=== PATIENT | female | born 1990 | race Caucasian/White ===

== ENCOUNTER → 2016-09-20 | Outpatient (CLI) | payer BC ==
[~2016-09-20] MED LIST: AC500T PO; ALBU8.5H2 IH; ALPR.25T PO; AMOX250S5 PO; ASPI-586 PO; BIRTH CONTROL PO; COUMADIN; DEXAINTSOL PO; EXCEDRIN; FEXO180T PO; FLUT16SP22 NSEACH; HYDR-1231 PO; HYDR-3583 PO; HYDR-3812 PO; HYDR473S50 PO; LEVO125T PO; LEVOTHYROXINE PO; LORA10TA7 PO; MONT10TA21 PO; OXYC1TAB5 PO; PNT40TEC PO; PRM25T PO; PROM25SU43 RC; PROM25TA14 PO; TETRACAINESUCKERS MT; WARF2TAB PO
--- NOTE | 2016-09-20 18:42 | Diagnostic Imaging Report ---
Ultrasound of the neck. INDICATION: Right lateral neck pain. History of thyroid cancer and lymph node removal. FINDINGS: There is a 1.1 x 0.5 x 0.8 cm lymph node in the right supraclavicular region with fatty hilum seen suggestive of benign etiology. No other mass or fluid collection seen. IMPRESSION: Nonspecific mildly prominent right supraclavicular lymph node. Dictated by: Dictated on workstation # [id number]
== END ==
LOC: RAD 14:50
PROVIDERS: ATTEND Otolaryngology Otolaryngology/Facial Plastic Surgery
DX: M54.2 Cervicalgia (principal)
CPT/HCPCS: 76536

== ENCOUNTER → 2016-10-08 | Outpatient (CLI) | payer BC ==
[~2016-10-08] MED LIST changes: +CATHETER FLUSH 10 ML SYR IV PRN; +IOHEXOL 350 MG/ML 100 ML (OMNIPAQUE 350) VIAL IV ONE; +NS 100 ML (IVPB) BAG IV ONE
[2016-10-08 11:18] LABS: BASOPHILS % (AUTO) 0 % (0-10); EOSINOPHILS % (AUTO) 1 % (0-10); LYMPHOCYTES # (AUTO) 1.7 X 10^3 (1.0-4.0); LYMPHOCYTES % (AUTO) 20 % (12-44); MEAN CORPUSCULAR HEMOGLOBIN 26 PG (25-34); MEAN CORPUSCULAR HGB CONC 33 G/DL (32-36); MEAN CORPUSCULAR VOLUME 79 FL (80-99); MEAN PLATELET VOLUME 10.3 FL (7.4-10.4); MONOCYTES # (AUTO) 0.5 X 10^3 (0.0-1.0); MONOCYTES % (AUTO) 6 % (0-12); NEUTROPHILS # (AUTO) 6.5 X 10^3 (1.8-7.8); NEUTROPHILS % (AUTO) 74 % (42-75); PLATELET COUNT 366 10^3/uL (130-400); RED CELL DISTRIBUTION WIDTH 13.8 % (10.0-14.5); WHITE BLOOD COUNT 8.9 10^3/uL (4.3-11.0)
[2016-10-08 11:35] LABS: ANION GAP 8 MMOL/L (5-14); BLOOD UREA NITROGEN 12 MG/DL (7-18); BUN/CREATININE RATIO 13; CALCIUM 9.8 MG/DL (8.5-10.1); CARBON DIOXIDE 26 MMOL/L (21-32); CHLORIDE 105 MMOL/L (98-107); GFR ESTIMATED > 60; GLUCOSE 100 MG/DL (70-105); POTASSIUM 3.9 MMOL/L (3.6-5.0); SODIUM 139 MMOL/L (135-145); hs C REACTIVE PROTEIN 0.04 MG/DL (0.00-0.50)
--- NOTE | 2016-10-08 12:16 | Diagnostic Imaging Report ---
PROCEDURE: CT head with and without contrast. TECHNIQUE: Multiple contiguous axial images were obtained through the brain before and after the administration of intravenous contrast. INDICATION: Headaches. Nausea and vomiting. 80 mL of Omnipaque 350 is administered intravenously. FINDINGS: The unenhanced phase demonstrates no intracranial hemorrhage. The brain parenchyma demonstrates normal pendleton-white matter differentiation without no brain edema, mass effect or enhancing lesion seen. No hydrocephalus. There is a patent stent seen along the left transverse and sigmoid sinus which is patent. The venous sinus enhancement proximal and distal to the stent is normal. No abnormal dilatation of the vein seen. The orbits, the calvarium, and the visualized portions of the paranasal sinuses appear grossly unremarkable. IMPRESSION: Patent left transverse and sigmoid venous sinus stents. No acute process. Dictated by: Dictated on workstation # [id number]
== END ==
LOC: RAD 10:58
PROVIDERS: ATTEND Internal Medicine
DX: R11.10 Vomiting, unspecified (principal)
CPT/HCPCS: 36415; 70470; 80048; 84703; 85025; 85379; 86141

== ENCOUNTER → 2016-11-26 | Outpatient (CLI) | payer BC ==
[~2016-11-26] MED LIST changes: -CATHETER FLUSH 10 ML SYR IV PRN; -IOHEXOL 350 MG/ML 100 ML (OMNIPAQUE 350) VIAL IV ONE; -NS 100 ML (IVPB) BAG IV ONE
--- NOTE | 2016-11-26 14:29 | Diagnostic Imaging Report ---
EXAMINATION: Right lower extremity duplex venous ultrasound. TECHNIQUE: DVT protocol. Multiple sonographic images with color Doppler and waveform interrogation were performed of the right lower extremity veins with compression and augmentation maneuvers. INDICATION: Right leg pain and swelling. FINDINGS: The right lower extremity veins from the groin to below the knee veins were examined with normal color-flow, compressibility and normal waveform demonstrated. The great saphenous vein is patent. There is a hypoechoic lesion measuring 5.4 x 0.5 x 3.4 cm may represent a hematoma located in the pelvis anterior to the right external iliac vessels. IMPRESSION: No evidence of DVT in the right lower extremity. Suggestion of a small right pelvic hematoma. Dictated by: Dictated on workstation # [id number]
== END ==
LOC: RAD 13:45
PROVIDERS: ATTEND Internal Medicine
DX: M79.651 Pain in right thigh (principal); R22.41 Localized swelling, mass and lump, right lower limb

== ENCOUNTER → 2017-02-13 | Outpatient (CLI) | payer BC ==
--- NOTE | 2017-02-15 19:20 | Diagnostic Imaging Report ---
INDICATION: History of papillary carcinoma of the thyroid. TECHNIQUE: Patient received 4.37 mCi I-131 oral and 48 hour post ingestion whole body planar imaging performed. FINDINGS: There is activity distributed throughout the length of the large bowel as well as some midline pelvic accumulation, probably within the rectum or urinary bladder. There is no abnormal uptake in the neck or chest. No abnormal hepatic uptake. IMPRESSION: Some excreted radiopharmacy with no suspicious scintigraphic findings. Dictated by: Dictated on workstation # [id number]
== END ==
LOC: CARD 13:44
PROVIDERS: ATTEND Radiology Radiation Oncology
DX: C73 Malignant neoplasm of thyroid gland (principal)
CPT/HCPCS: 78018

== ENCOUNTER 2017-02-15 12:48 | Outpatient (RCR) | payer BC ==
[~2017-02-15 12:48] MED LIST changes: +THYROTROPIN 1.1 MG VIAL IM ONE
== END 2017-03-02 | disposition home or self-care (01) ==
LOC: ONC 12:48
PROVIDERS: ATTEND Radiology Radiation Oncology
DX: C73 Malignant neoplasm of thyroid gland (principal)
CPT/HCPCS: 84703; 86800; 96372

== ENCOUNTER → 2017-03-04 | Outpatient (CLI) | payer BC ==
[~2017-03-04] MED LIST changes: -THYROTROPIN 1.1 MG VIAL IM ONE
--- NOTE | 2017-03-04 16:56 | Diagnostic Imaging Report ---
Three views of the right shoulder. INDICATION: Right shoulder pain. FINDINGS: No fracture, dislocation or radiopaque foreign body is seen. There is satisfactory alignment of the acromioclavicular and glenohumeral joints seen. IMPRESSION: Unremarkable exam. Dictated by: Dictated on workstation # [id number]
== END ==
LOC: RAD 14:34
PROVIDERS: ATTEND Internal Medicine
DX: M25.511 Pain in right shoulder (principal)
CPT/HCPCS: 73030

== ENCOUNTER 2021-09-18 19:21 | Outpatient (CLI) | payer OTHER ==
[~2021-09-18] VITALS: Ht 162.6 cm; Wt 68.7 kg
[~2021-09-18 19:21] MED LIST changes: +ACHD5005 PO; -HYDR-3812 PO
[2021-09-18 19:54] LABS: BILIRUBIN,URINE NEGATIVE (NEGATIVE); CLARITY,URINE CLEAR; COLOR,URINE YELLOW; GLUCOSE, URINE (UA) NEGATIVE (NEGATIVE); KETONES,URINE 3+ (NEGATIVE); LEUKOCYTE ESTERASE ,URINE NEGATIVE (NEGATIVE); NITRITE,URINE NEGATIVE (NEGATIVE); PH,URINE 5.5 (5-9); PROTEIN,URINE 1+ (NEGATIVE)
[2021-09-18 20:02] VITALS: BP 114/59
[2021-09-18 20:03] LABS: BACTERIA,URINE FEW /HPF
[2021-09-18 20:10] VITALS: BP 114/59
[2021-09-18] MEDS ORDERED: D5 LR IV SOLUTION 1,000 ML IV ONE ×2 (20:36→21:00)
[2021-09-18] MEDS ORDERED: PREN-8 PO (21:21)
[2021-09-18] MEDS ORDERED: GABA-486 PO (21:21)
[2021-09-18] MEDS ORDERED: NF-VITD400 PO (21:21)
[2021-09-18] MEDS ORDERED: OMEG-160 PO (21:21)
[2021-09-18] MEDS ORDERED: DOXY25TA56 PO (21:21)
[2021-09-18] MEDS ORDERED: LORA10CA PO (21:22)
[2021-09-18 21:40] VITALS: BP 114/59
[2021-09-18 22:15] VITALS: BP 114/59
--- NOTE | 2021-09-19 08:16 | Physician Query-Final Dx ---
Clinic Account Progress/Dx Physician Query: Please give diagnosis Please include # weeks gestation Date of Service Sep 18, 2021 at 19:21 MARISOL,JunSep 19, 2021 08:16
== END 2021-09-18 22:15 ==
LOC: LDRP 19:21 → WSo 19:21
PROVIDERS: ATTEND Family Medicine
DX: Z34.90 Encounter for supervision of normal pregnancy, unspecified, unspecified trimester (principal); Z3A.00 Weeks of gestation of pregnancy not specified
CPT/HCPCS: 81000; 96360; G0463; 99213

== ENCOUNTER 2022-03-12 17:15 | Observation (INO) | payer OTHER ==
[~2022-03-12] VITALS: Ht 162.6 cm; Wt 66.5 kg
[~2022-03-12 17:15] MED LIST changes: +DOXY25TA56 PO; +GABA-486 PO; +LORA10CA PO; +NF-VITD400 PO; +OMEG-160 PO; +PREN-8 PO
[2022-03-12] MEDS ORDERED: LACTATED RINGERS 1,000 ML IV ONE (18:00)
[2022-03-12 18:01] LABS: BASOPHILS # (AUTO) 0.1 10^3/uL (0.0-0.1); BASOPHILS % (AUTO) 1 % (0-10); EOSINOPHILS # (AUTO) 0.5 10^3/uL (0.0-0.3); EOSINOPHILS % (AUTO) 6 % (0-10); HEMATOCRIT 40 % (35-52); HEMOGLOBIN 13.2 g/dL (11.5-16.0); LYMPHOCYTES # (AUTO) 3.6 10^3/uL (1.0-4.0); LYMPHOCYTES % (AUTO) 44 % (12-44); MEAN CORPUSCULAR HEMOGLOBIN 27 pg (25-34); MEAN CORPUSCULAR HGB CONC 33 g/dL (32-36); MEAN CORPUSCULAR VOLUME 83 fL (80-99); MEAN PLATELET VOLUME 10.6 fL (9.0-12.2); MONOCYTES # (AUTO) 0.6 10^3/uL (0.0-1.0); MONOCYTES % (AUTO) 8 % (0-12); NEUTROPHILS # (AUTO) 3.4 10^3/uL (1.8-7.8); NEUTROPHILS % (AUTO) 41 % (42-75); PLATELET COUNT 289 10^3/uL (130-400); WHITE BLOOD COUNT 8.3 10^3/uL (4.3-11.0)
[2022-03-12 18:06] LABS: ALBUMIN 4.7 GM/DL (3.2-4.5); CHLORIDE 104 MMOL/L (98-107); POTASSIUM 3.9 MMOL/L (3.6-5.0); SODIUM 138 MMOL/L (135-145)
[2022-03-12 18:07] LABS: CALCIUM 9.9 MG/DL (8.5-10.1)
[2022-03-12 18:08] LABS: GLUCOSE 106 MG/DL (70-105)
[2022-03-12 18:09] LABS: TOTAL PROTEIN 7.8 GM/DL (6.4-8.2)
[2022-03-12 18:10] LABS: BILIRUBIN,TOTAL 0.3 MG/DL (0.1-1.0); CARBON DIOXIDE 22 MMOL/L (21-32)
[2022-03-12 18:12] LABS: ALKALINE PHOSPHATASE 48 U/L (40-136); CREATININE SERUM 0.99 MG/DL (0.60-1.30); GFR ESTIMATED 79
[2022-03-12 18:13] LABS: BUN/CREATININE RATIO 14
[2022-03-12 18:15] LABS: ALANINE AMINOTRANSFERASE 15 U/L (0-55); MAGNESIUM 2.1 MG/DL (1.6-2.4)
[2022-03-12 18:16] LABS: CREATINE KINASE 73 U/L (29-168)
[2022-03-12 18:23] LABS: CREATINE KINASE MB 0.6 NG/ML (<6.6)
[2022-03-12 18:24] LABS: ERYTHROCYTE SEDIMENTATION RATE 9 MM/HR (0-20)
[2022-03-12 18:28] LABS: BILIRUBIN,URINE NEGATIVE (NEGATIVE); CLARITY,URINE CLEAR; COLOR,URINE YELLOW; GLUCOSE, URINE (UA) NEGATIVE (NEGATIVE); KETONES,URINE NEGATIVE (NEGATIVE); LEUKOCYTE ESTERASE ,URINE NEGATIVE (NEGATIVE); NITRITE,URINE NEGATIVE (NEGATIVE); PROTEIN,URINE TRACE (NEGATIVE)
--- NOTE | 2022-03-12 18:28 | Diagnostic Imaging Report ---
EXAMINATION: Chest, one view. HISTORY: Seizure. COMPARISON: None available. FINDINGS: Heart size and pulmonary vasculature are normal. The lungs are clear without consolidation, pleural effusion, or pneumothorax. The osseous structures are intact. Surgical clips are present overlying the right lung apex and right neck. IMPRESSION: 1. No acute radiographic abnormality in the chest. Dictated by: Dictated on workstation # [id number]
[2022-03-12 18:35] LABS: BACTERIA,URINE TRACE /HPF; WBC,URINE RARE /HPF
[2022-03-12 18:36] LABS: TSH (THYROID ANALYZER) 0.02 UIU/ML (0.35-4.94)
[2022-03-12 18:43] LABS: AMPHETAMINE SCREEN, URINE NEGATIVE (NEGATIVE); BARBITURATE SCREEN URINE NEGATIVE (NEGATIVE); BENZODIAZEPINES SCREEN URINE NEGATIVE (NEGATIVE); CANNABINOID SCREEN, URINE NEGATIVE (NEGATIVE); COCAINE SCREEN URINE NEGATIVE (NEGATIVE); METHADONE STAT NEGATIVE (NEGATIVE); OPIATE SCREEN URINE NEGATIVE (NEGATIVE); OXYCODONE STAT NEGATIVE (NEGATIVE); PROPOXYPHENE STAT NEGATIVE (NEGATIVE); TRICYCLIC ANTIDEPRESSANTS SCRE NEGATIVE (NEGATIVE)
--- NOTE | 2022-03-12 18:51 | Diagnostic Imaging Report ---
EXAMINATION: CT head without contrast. TECHNIQUE: Multiple contiguous axial images were obtained through the brain without the use of intravenous contrast. All CT scans use one or more of the following dose optimizing techniques: Automated exposure control, MA and/or KvP adjustment based on patient size and exam type or iterative reconstruction. HISTORY: Seizure. COMPARISON: 10/08/2016. FINDINGS: The ventricles and sulci are normal. No abnormal attenuation of brain parenchyma is present. No acute intracranial hemorrhage or abnormal extra-axial fluid collections are present. No hyperdense vessel. A left transverse sinus stent is present. The calvarium is intact. The mastoid air cells are clear. The visualized paranasal sinuses are clear. The orbits are normal. IMPRESSION: 1. No acute intracranial abnormality. Result were communicated to Dr. Chirinos by Dr. Gregg Jenkins at 6:45 p.m. on 03/12/2022. Dictated by: Dictated on workstation # [id number]
[2022-03-12] MEDS ORDERED: NS 100 ML (IVPB) BAG IV ONE (19:00)
[2022-03-12 19:08] LABS: FREE T4 (FREE THYROXINE) 1.43 NG/DL (0.70-1.48)
[2022-03-12] MEDS: NS 100 ML (IVPB) BAG IV ONE ×2 (19:18→19:56)
[2022-03-12] MEDS: IOHEXOL 350 MG/ML 100 ML (OMNIPAQUE 350) VIAL IV ONE ×4 (19:18→19:56)
--- NOTE | 2022-03-12 19:27 | Diagnostic Imaging Report ---
TECHNIQUE: CT cerebral perfusion study was performed using a dual slab technique. Post processing was performed using the RAPID software. 80 mL of Omnipaque 350 was administered. REASON FOR EXAM: Left MCA stenosis. Acute stroke. COMPARISON: CT head performed earlier the same date. FINDINGS: There is no significant motion artifact. The arterial inflow and venous outflow graphs are adequate. The volume of parenchyma demonstrating cerebral blood flow of less than 30% is equal to 0 mL. The volume of parenchyma showing a Tmax greater than 6 seconds is 0 mL. Parenchyma are demonstrated Tmax greater than 8 seconds equals 0 mL, and greater than 10 seconds 0 mL. No evidence of core infarct or penumbra-like pattern. IMPRESSION: 1. No CT perfusion evidence of core infarct or penumbra-like pattern. Dictated by: Dictated on workstation # [id number]
--- NOTE | 2022-03-12 19:34 | Diagnostic Imaging Report ---
PROCEDURE: CT angiography of the head and CT angiography of the neck with and without contrast. TECHNIQUE: Contiguous noncontrast images were obtained from the skull base through the vertex. After intravenous contrast administration, helical CT angiography of the neck was performed. Source data was reformatted into 3D MIP projections. Delayed post contrast acquisition was also obtained. Auto Exposure Controls were utilized during the CT exam to meet ALARA standards for radiation dose reduction. INDICATION: Seizure. TIA. COMPARISON: CT head performed earlier the same date. FINDINGS: CTA Neck: The visualized portions of the aortic arch demonstrate no evidence of aneurysm or dissection. There is conventional branching pattern of the great vessels of the aorta. The brachiocephalic artery is normal in course and caliber. The right and left common carotid origins are unremarkable. The origin of the left subclavian artery is patent. The common carotid arteries and internal carotid arteries demonstrate a normal course. No stenosis or dissection in the carotid systems. The external carotid arteries are patent and unremarkable. The right vertebral artery is dominant. The origin of the right vertebral artery is seen and is unremarkable. The origin of the left vertebral artery is seen and is unremarkable. There is no focal stenosis seen within the neck. There is no dissection. The vertebral arteries are well visualized to up to the level of the basilar artery. The osseous structures of the cervical spine are unremarkable. Included views through the lung apices demonstrate no focal consolidation. CTA brain: No stenosis or aneurysm in the intracranial portion of the bilateral ICA. No stenosis is seen in the bilateral anterior, middle, and posterior cerebral arteries. No evidence of aneurysm the [place] of [place]. In the posterior circulation, both of the vertebral arteries demonstrate normal opacification. Both the right and left PICA arteries are identified. The basilar artery is normal in course and caliber. The terminal branch vessels including the superior cerebellar arteries unremarkable. IMPRESSION: 1. No stenosis or aneurysm in the [place] of [place]. No large vessel occlusion. 2. No stenosis or dissection the bilateral carotid and vertebral arteries. Dictated by: Dictated on workstation # [id number]
[2022-03-12] MEDS ORDERED: KETOROLAC 30 MG/ML VIAL IVP STA (20:02)
--- NOTE | 2022-03-12 20:35 | ED Neurological Problem ---
General Chief Complaint: Neurological Problems Stated Complaint: SEIZURE Nursing Triage Note: PT AMB TO RM 9. PT STATED THAT SHE WAS DRIVING AND HAD A SEIZURE AND WENT OFF THE ROAD AND HIT A POLE. PT HAS HX OF SEIZURES. Source: patient History of Present Illness Date Seen by Provider: Mar 12, 2022 Allergies and Home Medications Allergies Coded Allergies: ondansetron (Verified Allergy, Mild, 01/16/15) Patient Home Medication List Aspirin (Aspir 81) 81 Mg Tablet.dr, 81 MG PO DAILY PRN, (Reported) Entered as Reported by: JACKY HOLM on 03/19/161956 Doxylamine Succinate (Unisom) 25 Mg Tablet, 25 MG PO HS, (Reported) Entered as Reported by: NELSON PATINO on 09/18/212120 Gabapentin (Gabapentin) 100 Mg Capsule, 100 MG PO HS, (Reported) Entered as Reported by: NELSON PATINO on 09/18/212120 Levothyroxine Sodium (Synthroid) 125 Mcg Tablet, 125 MCG PO DAILY, (Reported) Entered as Reported by: YAJAIRA STEPHENS on 12/06/14 1239 Loratadine (Claritin) 10 Mg Capsule, 10 MG PO DAILY, (Reported) Entered as Reported by: NELSON PATINO on 09/18/212121 [place]-3/Dha/Epa/Fish Oil (Fish Oil 1,000 mg Softgel) 1 Each Capsule, 1 EACH PO DAILY, (Reported) Entered as Reported by: NELSON PATINO on 09/18/212120 Vit W-Ca,Fe,FA(<1 mg) ( Formula) 1 Each Tablet, 1 EACH PO DAILY, (Reported) Entered as Reported by: NELSON PATINO on 09/18/212120 Vitamin D (Vitamin D3) 10 Mcg Tablet, 400 MCG PO DAILY, (Reported) Entered as Reported by: NELSON PATINO on 09/18/212120 Past Dhgofnz-Mifruy-Caxxes Hx Patient Social History Tobacco Use?: No Substance use?: No Alcohol Use?: No Pt feels they are or have been: Unable to obtain Immunizations Up To Date Tetanus Booster (TDap): Less than 5yrs PED Vaccines UTD: Yes Influenza Vaccine Up-to-Date: Yes; Up-to-Date Seasonal Allergies Seasonal Allergies: No Past Medical History Orthopedic, Thyroidectomy, Tonsillectomy Asthma Reproductive Disorders: Yes Female Reproductive Disorders: Endometriosis, Ovarian Cyst [employer] History: IUD Kidney Stones Hypothyroidsim Tonsilitis Thyroid Anxiety Eczema Family Medical History No Pertinent Family Hx Physical Exam Vital Signs Vital Signs - First Documented 03/12/22 17:24 Temp 36.6 Pulse 95 Resp 12 B/P (MAP) 116/63 (80) Pulse Ox 98 O2 Delivery Room Air Capillary Refill : Less Than 3 Seconds Height, Weight, BMI Height: 5'4" Weight: 150lbs. 0.0oz. [id number]; 22.00 BMI Method:Stated Progress/Results/Core Measures Results/Orders Lab Results Laboratory Tests Test 03/12/22 17:26 03/12/22 18:05 03/12/22 18:20 Range/Units White Blood Count 8.3 4.3-11.0 10^3/uL Red Blood Count 4.82 3.80-5.11 10^6/uL Hemoglobin 13.2 11.5-16.0 g/dL Hematocrit 40 35-52 % Mean Corpuscular Volume 83 80-99 fL Mean Corpuscular Hemoglobin 27 25-34 pg Mean Corpuscular Hemoglobin Concent 33 32-36 g/dL Red Cell Distribution Width 13.1 10.0-14.5 % Platelet Count 289 130-400 10^3/uL Mean Platelet Volume 10.6 9.0-12.2 fL Immature Granulocyte % (Auto) 0 % Neutrophils (%) (Auto) 41 L 42-75 % Lymphocytes (%) (Auto) 44 12-44 % Monocytes (%) (Auto) 8 0-12 % Eosinophils (%) (Auto) 6 0-10 % Basophils (%) (Auto) 1 0-10 % Neutrophils # (Auto) 3.4 1.8-7.8 10^3/uL Lymphocytes # (Auto) 3.6 1.0-4.0 10^3/uL Monocytes # (Auto) 0.6 0.0-1.0 10^3/uL Eosinophils # (Auto) 0.5 H 0.0-0.3 10^3/uL Basophils # (Auto) 0.1 0.0-0.1 10^3/uL Immature Granulocyte # (Auto) 0.0 0.0-0.1 10^3/uL Erythrocyte Sedimentation Rate 9 0-20 MM/HR Sodium Level 138 135-145 MMOL/L Potassium Level 3.9 3.6-5.0 MMOL/L Chloride Level 104 98-107 MMOL/L Carbon Dioxide Level 22 21-32 MMOL/L Anion Gap 12 5-14 MMOL/L Blood Urea Nitrogen 14 7-18 MG/DL Creatinine 0.99 0.60-1.30 MG/DL Estimat Glomerular Filtration Rate 79 BUN/Creatinine Ratio 14 Glucose Level 106 H 70-105 MG/DL Calcium Level 9.9 8.5-10.1 MG/DL Corrected Calcium 8.5-10.1 MG/DL Magnesium Level 2.1 1.6-2.4 MG/DL Total Bilirubin 0.3 0.1-1.0 MG/DL Aspartate Amino Transf (AST/SGOT) 17 5-34 U/L Alanine Aminotransferase (ALT/SGPT) 15 0-55 U/L Alkaline Phosphatase 48 40-136 U/L Total Creatine Kinase 73 29-168 U/L Creatine Kinase MB 0.6 <6.6 NG/ML Myoglobin 414.3 H 10.0-92.0 NG/ML C-Reactive Protein High Sensitivity 0.06 0.00-0.50 MG/DL Total Protein 7.8 6.4-8.2 GM/DL Albumin 4.7 H 3.2-4.5 GM/DL Free Thyroxine 1.43 0.70-1.48 NG/DL TSH Sunflower Testing 0.02 L 0.35-4.94 UIU/ML Serum Test, Qualitative NEGATIVE NEGATIVE Serum Alcohol < 10 <10 MG/DL Influenza Type A (RT-PCR) Not Detected Not Detecte Influenza Type B (RT-PCR) Not Detected Not Detecte SARS-CoV-2 RNA (RT-PCR) Not Detected Not Detecte Urine Color YELLOW Urine Clarity CLEAR Urine pH 5.0 5-9 Urine Specific [place] >=1.030 1.016-1.022 Urine Protein TRACE H NEGATIVE Urine Glucose (UA) NEGATIVE NEGATIVE Urine Ketones NEGATIVE NEGATIVE Urine Nitrite NEGATIVE NEGATIVE Urine Bilirubin NEGATIVE NEGATIVE Urine Urobilinogen 0.2 < = 1.0 MG/DL Urine Leukocyte Esterase NEGATIVE NEGATIVE Urine RBC (Auto) NEGATIVE NEGATIVE Urine RBC NONE /HPF Urine WBC RARE /HPF Urine Squamous Epithelial Cells 2-5 /HPF Urine Crystals NONE /LPF Urine Bacteria TRACE /HPF Urine Casts NONE /LPF Urine Mucus NEGATIVE /LPF Urine Culture Indicated NO Urine Opiates Screen NEGATIVE NEGATIVE Urine Oxycodone Screen NEGATIVE NEGATIVE Urine Methadone Screen NEGATIVE NEGATIVE Urine Propoxyphene Screen NEGATIVE NEGATIVE Urine Barbiturates Screen NEGATIVE NEGATIVE Ur Tricyclic Antidepressants Screen NEGATIVE NEGATIVE Urine Phencyclidine Screen NEGATIVE NEGATIVE Urine Amphetamines Screen NEGATIVE NEGATIVE Urine Methamphetamines Screen NEGATIVE NEGATIVE Urine Benzodiazepines Screen NEGATIVE NEGATIVE Urine Cocaine Screen NEGATIVE NEGATIVE Urine Cannabinoids Screen NEGATIVE NEGATIVE My Orders Orders - ZAYMIYA Lyman Fanny DO Ed Iv/Invasive Line Start (03/12/22 17:53) Ekg Tracing (03/12/2253) O2 (03/12/22:53) Monitor-Rhythm Ecg Trace Only (03/12/22:53) Ct Head Wo-R/O Stroke (03/12/22:53) Chest 1 View, Ap/Pa Only (03/12/2253) Alcohol (03/12/22) Cbc With Automated Diff (03/12/22:) Comprehensive Metabolic Panel (03/12/22:53) Creatine Kinase (03/12/22:) Creatine Kinase Mb (03/12/22:53) Hs C Reactive Protein (03/12/22:53) Drug Screen Stat (Urine) (03/12/22:53) Hcg,Qualitative Serum (03/12/22:) Magnesium (03/12/22:53) Thyroid Analyzer (03/12/22:53) Ua Culture If Indicated (03/12/22:53) Erythrocyte Sedimentation Rate (03/12/22:) Myoglobin Serum (03/12/22:53) Ed Iv/Invasive Line Start (03/12/22:53) Lactated Ringers (Lr 1000 Ml Iv Solution (03/12/22 18:00) Covid 19 Inhouse Test (03/12/22:53) Influenza A And B By Pcr (03/12/22:53) Isolation Central Supply Req (03/12/22:53) Free T4 (Free Thyroxine) (03/12/22 17:26) Ct Angio Head/Neck (03/12/22 18:47) Ct Head Perfusion W/ Contrast (03/12/22 18:47) Iohexol Injection (Omnipaque 350 Mg/Ml 1 (03/12/22 19:00) Ns (Ivpb) (Sodium Chloride 0.9% Ivpb Bag (03/12/22 19:00) Iohexol Injection (Omnipaque 350 Mg/Ml 1 (03/12/22 19:00) Ns (Ivpb) (Sodium Chloride 0.9% Ivpb Bag (03/12/22 19:00) Ketorolac Injection (Toradol Injection) (03/12/22 20:02) Levetiracetam Injection (Keppra Injectio (03/12/22 20:30) Ed Admission (Communication) (03/12/22 20:20) Medications Given in ED Current Medications Medications Dose Ordered Sig/Francy Route Start Time Stop Time Status Last Admin Dose Admin Iohexol 100 ml ONCE ONCE IV 03/12/22 19:00 03/12/22 19:01 DC 03/12/22 19:56 45 ML Iohexol 100 ml ONCE ONCE IV 03/12/22 19:00 03/12/22 19:01 DC 03/12/22 19:56 75 ML Lactated Ringer's 1,000 ml @ 0 mls/hr Q0M ONCE IV 03/12/22 18:00 03/12/22 18:01 DC 03/12/22 18:04 1,000 MLS/HR Levetiracetam 1000 mg/Sodium Chloride 110 ml @ 440 mls/hr ONCE ONCE IV 03/12/22 20:30 03/12/22 20:44 03/12/22 20:27 440 MLS/HR Sodium Chloride 100 ml ONCE ONCE IV 03/12/22 19:00 03/12/22 19:01 DC 03/12/22 19:55 20 ML Sodium Chloride 100 ml ONCE ONCE IV 03/12/22 19:00 03/12/22 19:01 DC 03/12/22 19:56 100 ML Vital Signs/I&O 03/12/22 17:24 Temp 36.6 Pulse 95 Resp 12 B/P (MAP) 116/63 (80) Pulse Ox 98 O2 Delivery Room Air Blood Pressure Mean: 80 Departure Impression Primary Impression: Seizure Additional Impressions: History of cerebral venous sinus thrombosis History of thyroid cancer Disposition: ADMITTED INPATIENT Condition: Stable Admissions Decision to Admit Reason: Admit from ER (General) Decision to Admit/Date: Mar 12, 2022 Time/Decision to Admit Time: 20:00 Departure-Patient Inst. Referrals: BRIELLE LAW MD (PCP/Family) Primary Care Physician MIYA COLLAZO DO Mar 12, 2022 20:35
[2022-03-12 20:58] VITALS: BP 108/70
[2022-03-12] MEDS ORDERED: PATIENT MAY USE OWN MEDS, ALL PO SCH (21:15)
[2022-03-12 21:50] LABS: HEMATOCRIT 37 % (35-52); HEMOGLOBIN 12.6 g/dL (11.5-16.0); MEAN CORPUSCULAR HEMOGLOBIN 28 pg (25-34); MEAN CORPUSCULAR HGB CONC 34 g/dL (32-36); MEAN CORPUSCULAR VOLUME 82 fL (80-99); MEAN PLATELET VOLUME 10.5 fL (9.0-12.2); PLATELET COUNT 246 10^3/uL (130-400); WHITE BLOOD COUNT 11.4 10^3/uL (4.3-11.0)
[2022-03-13] MEDS: ACETAMINOPHEN 325 MG TABLET PO PRN ×2 (04:52→08:50)
[2022-03-13 05:35] LABS: CALCIUM 9.5 MG/DL (8.5-10.1); CREATININE SERUM 0.75 MG/DL (0.60-1.30); POTASSIUM 3.8 MMOL/L (3.6-5.0)
[2022-03-13] MEDS ORDERED: LEVE500T99 PO (09:05)
--- NOTE | 2022-03-13 13:56 | Short Stay Summary ---
History of Present Illness History of Present Illness Reason for visit/HPI 31 yo female brought to ER due to seizure while driving. 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 Her states EMS arrived to the scene rapidly and she was seizing at the time. She has a history of one grand mal seizure many years ago after she had a TIA related to a cerebral venous thrombosis after having her tonsils removed. She was on Keppra 500 mg daily for 6 months then, has never had another seizure. She has had to have intracranial vascular stenting multiple times in the last several years which started after papilledema was noted by her eye doctor. She followed with Neuro at and last saw him before she attempted to get to get clearance for that, a few years ago, and they released her to an as needed basis. She has already called their office to let them know what is going on and will see them urgently. Today she is asymptomatic and denies any concerns. She is 4 months , stopped a while ago after she had mastitis in February, treated with clindamycin and then developed c diff and was unable to keep up with fluid and lost weight and milk supply. She does note she just got a script for hydroxyzine and took it for the first time this week. Date of Admission Mar 12, 2022 at 20:20 Date of Discharge Mar 13, 2022 Time Seen by Provider: 08:45 Attending Physician Brielle Law MD Admitting Physician Admitting Physician: Kirstie Gonzalez MD Attending Physician: Kirstie Gonzalez MD Consult Allergies and Home Medications Allergies Coded Allergies: ondansetron (Verified Allergy, Mild, 01/16/15) Patient Home Medication List Home Medication List Reviewed: Yes (Keppra was added on d/c, not a previous home med) Aspirin (Aspir 81) 81 Mg Tablet.dr, 81 MG PO DAILY PRN, (Reported) Entered as Reported by: JACKY HOLM on 03/19/161956 Gabapentin (Gabapentin) 100 Mg Capsule, 100 MG PO HS, (Reported) Entered as Reported by: NELSON PATINO on 09/18/212120 Levetiracetam (Keppra) 500 Mg Tablet, 500 MG PO DAILY Prescribed by: KIRSTIE GONZALEZ on 03/13/22 09 Levothyroxine Sodium (Synthroid) 125 Mcg Tablet, 125 MCG PO DAILY, (Reported) Entered as Reported by: YAJAIRA STEPHENS on 12/06/14 1239 Loratadine (Claritin) 10 Mg Capsule, 10 MG PO DAILY, (Reported) Entered as Reported by: NELSON PATINO on 09/18/212121 [place]-3/Dha/Epa/Fish Oil (Fish Oil 1,000 mg Softgel) 1 Each Capsule, 1 EACH PO DAILY, (Reported) Entered as Reported by: NELSON PATINO on 09/18/212120 Vit W-Ca,Fe,FA(<1 mg) ( Formula) 1 Each Tablet, 1 EACH PO DAILY, (Reported) Entered as Reported by: NELSON PATINO on 09/18/212120 Vitamin D (Vitamin D3) 10 Mcg Tablet, 400 MCG PO DAILY, (Reported) Entered as Reported by: NELSON PATINO on 09/18/212120 Discontinued Medications Doxylamine Succinate (Unisom) 25 Mg Tablet, 25 MG PO HS, (Reported) Entered as Reported by: NELSON PATINO on 09/18/212120 Past Wvprutl-Dgicxp-Cvzoqr Hx Patient Social History Smoking Status: Never a Smoker 2nd Hand Smoke Exposure: No Recent Hopitalizations: No Have you traveled recently?: No Alcohol Use?: No Pt feels they are or have been: No Immunizations Up To Date Tetanus Booster (TDap): Less than 5yrs Pediatric: Yes Date of Influenza Vaccine: Mar 08, 2022 Seasonal Allergies Seasonal Allergies: No Surgeries Orthopedic, Thyroidectomy, Tonsillectomy Neurological Headaches /Migraines, Seizure Disorder, TIA Reproductive System Hx Reproductive Disorders: Yes Female Reproductive Disorders: Endometriosis, 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 Genitourinary Kidney Stones Endocrine Endocrine Disorders: Hypothyroidsim HEENT HEENT Disorders: Tonsilitis Cancer Thyroid Psychosocial Behavioral Health Disorders: Anxiety Integumentary Skin/Integumentary Disorders: Eczema Family Medical History Significant Family History: No Pertinent Family Hx Review of Systems Constitutional: No fever EENTM: No blurred vision, No vision loss Respiratory: No cough, No short of breath Cardiovascular: No chest pain Gastrointestinal: No abdominal pain, No constipation, No diarrhea, No nausea, No vomiting Genitourinary: No dysuria Musculoskeletal: no symptoms reported Skin: no symptoms reported Psychiatric/Neurological: Anxiety Physical Exam Vital Signs Vital Signs - First Documented 03/12/22 17:24 Temp 36.6 Pulse 95 Resp 12 B/P (MAP) 116/63 (80) Pulse Ox 98 O2 Delivery Room Air Capillary Refill : Less Than 3 Seconds Height, Weight, BMI Height: 5'4" Weight: 150lbs. 0.0oz. 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 Norm as Tested; No Abnormal Cerebellar Tests, No Facial Droop, No Motor Weakness Skin: Normal Color, Warm/Dry Short Stay Diagnosis Discharge Diagnosis-Short Stay Admission Diagnosis: Seizure History of cerebral venous thrombosis History of thyroid cancer History of intracranial vascular stenting Final Discharge Diagnosis: Seizure History of cerebral venous thrombosis History of thyroid cancer History of intracranial vascular stenting Conclusion Labs Laboratory Tests 03/12/22 17:26: White Blood Count 8.3, Red Blood Count 4.82, Hemoglobin 13.2, Hematocrit 40, Mean Corpuscular Volume 83, Mean Corpuscular Hemoglobin 27, Mean Corpuscular Hemoglobin Concent 33, Red Cell Distribution Width 13.1, Platelet Count 289, Mean Platelet Volume 10.6, Immature Granulocyte % (Auto) 0, Neutrophils (%) (Auto) 41L, Lymphocytes (%) (Auto) 44, Monocytes (%) (Auto) 8, Eosinophils (%) (Auto) 6, Basophils (%) (Auto) 1, Neutrophils # (Auto) 3.4, Lymphocytes # (Auto) 3.6, Monocytes # (Auto) 0.6, Eosinophils # (Auto) 0.5H, Basophils # (Auto) 0.1, Immature Granulocyte # (Auto) 0.0, Erythrocyte Sedimentation Rate 9, Sodium Level 138, Potassium Level 3.9, Chloride Level 104, Carbon Dioxide Level 22, Anion Gap 12, Blood Urea Nitrogen 14, Creatinine 0.99, Estimat Glomerular Filtration Rate 79, BUN/Creatinine Ratio 14, Glucose Level 106H, Calcium Level 9.9, Corrected Calcium , Magnesium Level 2.1, Total Bilirubin 0.3, Aspartate Amino Transf (AST/SGOT) 17, Alanine Aminotransferase (ALT/SGPT) 15, Alkaline Phosphatase 48, Total Creatine Kinase 73, Creatine Kinase MB 0.6, Myoglobin 414.3H, C-Reactive Protein High Sensitivity 0.06, Total Protein 7.8, Albumin 4.7H, Free Thyroxine 1.43, TSH Albert Testing 0.02L, Serum Test, Qualitative NEGATIVE, Serum Alcohol < 10 03/12/22 18:05: Influenza Type A (RT-PCR) Not Detected, Influenza Type B (RT-PCR) Not Detected, SARS-CoV-2 RNA (RT-PCR) Not Detected 03/12/22 18:20: Urine Color YELLOW, Urine Clarity CLEAR, Urine pH 5.0, Urine Specific [place] >=1.030, Urine Protein TRACEH, Urine Glucose (UA) NEGATIVE, Urine Ketones NEGATIVE, Urine Nitrite NEGATIVE, Urine Bilirubin NEGATIVE, Urine Urobilinogen 0.2, Urine Leukocyte Esterase NEGATIVE, Urine RBC (Auto) NEGATIVE, Urine RBC NONE, Urine WBC RARE, Urine Squamous Epithelial Cells 2-5, Urine Crystals NONE, Urine Bacteria TRACE, Urine Casts NONE, Urine Mucus NEGATIVE, Urine Culture Indicated NO, Urine Opiates Screen NEGATIVE, Urine Oxycodone Screen NEGATIVE, Urine Methadone Screen NEGATIVE, Urine Propoxyphene Screen NEGATIVE, Urine Barbiturates Screen NEGATIVE, Ur Tricyclic Antidepressants Screen NEGATIVE, Urine Phencyclidine Screen NEGATIVE, Urine Amphetamines Screen NEGATIVE, Urine Methamphetamines Screen NEGATIVE, Urine Benzodiazepines Screen NEGATIVE, Urine Cocaine Screen NEGATIVE, Urine Cannabinoids Screen NEGATIVE 03/12/22 21:43: White Blood Count 11.4H, Red Blood Count 4.54, Hemoglobin 12.6, Hematocrit 37, Mean Corpuscular Volume 82, Mean Corpuscular Hemoglobin 28, Mean Corpuscular Hemoglobin Concent 34, Red Cell Distribution Width 13.2, Platelet Count 246, Mean Platelet Volume 10.5 03/13/22 04:55: Sodium Level 142, Potassium Level 3.8, Chloride Level 109H, Carbon Dioxide Level 21, Anion Gap 12, Blood Urea Nitrogen 13, Creatinine 0.75, Estimat Glomerular Filtration Rate 110, BUN/Creatinine Ratio 17, Glucose Level 89, Calcium Level 9.5 Conclusion/Plan Pt already in contact with her Neuro. CT and CTA unremarkable, no seizure activity in patient, loaded with 1000 mg IV Keppra in ER. Will restart Keppra 500 mg daily and she will follow up with Neuro. No driving for 6 months/until cleared by Neuro. Copy Copies To 1: BRIELLE LAW MD,KIRSTIE Herrera MD Mar 13, 2022 13:56
== END 2022-03-13 09:03 | disposition home or self-care (01) ==
LOC: EDUNIT# 17:15 → ER 17:17 → ICU 20:20 → INTOOBSV 20:20 → UNDOADMOB 20:20 → ICU 21:20 → UNDODISOB 03-13 09:03
PROVIDERS: ADMIT Family Medicine; ATTEND Family Medicine
DX: R56.9 Unspecified convulsions (principal); Z86.718 Personal history of other venous thrombosis and embolism; Z85.850 Personal history of malignant neoplasm of thyroid; Z20.822 Contact with and (suspected) exposure to COVID-19; Z79.899 Other long term (current) drug therapy; Z79.82 Long term (current) use of aspirin
CPT/HCPCS: 0042T; 70450; 70496; 70498; 71045; 80048; 80053; 80306; 81000; 82550; 82553; 83735; 83874; 84439; 84443; 84703; 85025; 85027; 85652; 86141; 87081; 87636; 93005; 93041; 99285; G0378 ×2; G0480; 36415; 80320

== ENCOUNTER → 2022-06-05 | Outpatient (CLI) | payer OTHER ==
[~2022-06-05] MED LIST changes: +GADOTERATE 0.5 MMOL/ML (CLARISCAN) 15 ML VIAL IV ONE; +LEVE500T99 PO
--- NOTE | 2022-06-05 10:22 | Diagnostic Imaging Report ---
CLINICAL INDICATIONS: Patient with new onset seizure. Patient with history of TIA and stent placement of the brain for narrowing. Patient has been having seizures. EXAM: MRI of the brain performed without and with 12 cc of Clariscan IV contrast. Sequences include sagittal T1, axial DWI, ADC map, coronal 3D FSPGR with sagittal and axial reformations, axial T1, axial T2, axial FLAIR, axial gradient echo, coronal T2 thin, coronal FLAIR thin, coronal 3D FSPGR postcontrast with sagittal and axial reformations. COMPARISON: CT angiogram of the head/neck dated 03/12/2022. FINDINGS: BRAIN PARENCHYMA: There is increased T2 signal and prominence of the right hippocampal structure is best seen on the coronal sequence. There is no evidence of acute cerebral infarction, intracranial hemorrhage, or mass seen. There is no significant architectural distortion, midline shift, or herniation. There is no abnormal IV contrast enhancement or diffusion restriction signal abnormality. VENTRICLES: There is no hydrocephalus. BASAL CISTERNS: Unremarkable. VISUALIZED INTRACRANIAL VESSELS: Unremarkable as visualized. SKULL/ ORBITS: Unremarkable. VISUALIZED SINUSES/ MASTOIDS: There is mild mucosal thickening on the right maxillary sinus. There is minimal mucosal thickening involving ethmoid sinus and left maxillary sinus. IMPRESSION: 1: There is asymmetric enlargement of the right hippocampal structures and increased T2 signal. These findings may be from sequelae of post ictal changes. Other parenchymal abnormality in the region, such as cortical dysplasia, cannot be completely excluded. Neoplasm is not suspected. Followup MRI of the brain with and without contrast in 3 months is suggested to evaluate for interval change. 2: The remainder of the brain parenchyma is unremarkable. There is no abnormal IV contrast enhancement. 3: Mild paranasal sinus disease. Dictated by: Dictated on workstation # [id number]
== END ==
LOC: RAD 08:45
PROVIDERS: ATTEND Psychiatry & Neurology Neurology
DX: J32.9 Chronic sinusitis, unspecified (principal); R56.9 Unspecified convulsions
CPT/HCPCS: 70553